=== PATIENT | male | born 1990 | race Caucasian/White ===

== ENCOUNTER 2017-05-24 18:13 | Emergency (ER) | payer SELFPAY ==
[~2017-05-24 18:13] MED LIST: HYDR-3129 PO; INDOMETHACIN 75 MG OR; RIVA10 OR; SENN-29 PO
[2017-05-24] MEDS ORDERED: IOHEXOL 350 MG/ML 10 ML VIAL (for RAD DIAG) IVCONTRAST ONE (18:14)
[2017-05-24 18:26] VITALS: BP 120/65; PULSE 83; RESP 18; TEMP 98; O2SAT 99
--- NOTE | 2017-05-24 18:41 | PD ---
HPI Chief Complaint: Chest Pain Time Seen by Provider: 18:31 Travel History International Travel<30 days: No Contact w/Intl Traveler<30days: No Traveled to known affect area: No History of Present Illness HPI 26-year-old male complains chest pain. Patient states that the chest pain started a week ago. Patient states that the chest pain is pressure pain localized to the lower anterior chest wall area. Patient denies any pain radiation. Patient denies palpitation nausea diaphoresis. Patient states that he has shortness of breath with chest pain. Patient denies any coughing congestion fever chills. Patient denies history of CAD. Patient denies history hypertension, diabetes, hyperlipidemia. Patient is a non-smoker. Patient denies family history of heart disease. Patient states the pain is worse with sitting up and better when lying down. On a scale of 1-10 the pain is a 7. Patient denies any alcohol or illicit drug abuse. PFSH Past Medical History Medical History: Denies Significant Hx Autoimmune Disease: No Cancer: No Cardiovascular Problems: Yes (HEART MURMUR) Endocrine: No Genitourinary: No Immune Disorder: No Musculoskeletal: No Neurologic: No Psychiatric: No Reproductive: No Respiratory: No Seizures: No Tetanus Vaccination: < 5 Years Influenza Vaccination: No Past Surgical History Ear Surgery: Yes Other Surgery: Yes (ear) Social History Alcohol Use: No Tobacco Use: No Substance Use: No Allergies-Medications (Allergen,Severity, Reaction): Coded Allergies: No Known Allergies (Unverified Adverse Reaction, Unknown, 05/24/17) Reported Meds & Prescriptions Reported Meds & Active Scripts Active No Active Prescriptions or Reported Medications Review of Systems General / Constitutional: No: Fever Eyes: No: Visual changes HENT: No: Headaches Cardiovascular: Positive: Chest Pain or Discomfort Respiratory: No: Shortness of Breath Gastrointestinal: No: Abdominal Pain Genitourinary: No: Dysuria Musculoskeletal: No: Pain Skin: No Rash Neurologic: No: Weakness Psychiatric: No: Depression Endocrine: No: Polydipsia Hematologic/Lymphatic: No: Easy Bruising Physical Exam Narrative GENERAL: Well-nourished, well-developed patient. SKIN: Focused skin assessment warm/dry. HEAD: Normocephalic. GENERAL: Well-nourished, well-developed patient. SKIN: Focused skin assessment warm/dry. HEAD: Normocephalic. EYES: No scleral icterus. No injection or drainage. NECK: Supple, trachea midline. No JVD or lymphadenopathy. CARDIOVASCULAR: Regular rate and rhythm without murmurs, gallops, or rubs. RESPIRATORY: Breath sounds equal bilaterally. No accessory muscle use. GASTROINTESTINAL: Abdomen soft, non-tender, nondistended. MUSCULOSKELETAL: No cyanosis, or edema. BACK: Nontender without obvious deformity. No CVA tenderness. Neurologic exam normal. Data Data Last Documented VS Vital Signs Date Time Temp Pulse Resp B/P (MAP) Pulse Ox O2 Delivery O2 Flow Rate FiO2 05/24/17 19:39 63 14 133/64 (87) 100 05/24/17 18:45 Room Air 05/24/17 18:26 98.0 Orders Orders Electrocardiogram (05/24/17 18:35) Complete Blood Count With Diff (05/24/17 18:35) Comprehensive Metabolic Panel (05/24/17 18:35) Creatine Kinase (Cpk) (05/24/17 18:35) Troponin I (05/24/17 18:35) Prothrombin Time / Inr (Pt) (05/24/17 18:35) Act Partial Throm Time (Ptt) (05/24/17 18:35) C-Reactive Protein (Crp) (05/24/17 18:35) Westergren Sedimentation Rate (05/24/17 18:35) Chest, Single Ap (05/24/17 18:35) Iv Access Insert/Monitor (05/24/17 18:35) Ecg Monitoring (05/24/17 18:35) Oximetry (05/24/17 18:35) Sodium Chlor 0.9% 1000 Ml Inj (Ns 1000 M (05/24/17 18:45) Morphine Inj (Morphine Inj) (05/24/17 18:45) Ondansetron Inj (Zofran Inj) (05/24/17 18:45) Ct Pulmonary Angiogram (05/24/17 19:14) Iohexol 350 Inj (Omnipaque 350 Inj) (05/24/17 18:14) Labs Laboratory Tests Test 05/24/17 18:40 White Blood Count 9.7 TH/MM3 Red Blood Count 4.89 MIL/MM3 Hemoglobin 15.8 GM/DL Hematocrit 44.8 % Mean Corpuscular Volume 91.6 FL Mean Corpuscular Hemoglobin 32.4 PG Mean Corpuscular Hemoglobin Concent 35.4 % Red Cell Distribution Width 12.7 % Platelet Count 257 TH/MM3 Mean Platelet Volume 7.8 FL Neutrophils (%) (Auto) 64.1 % Lymphocytes (%) (Auto) 13.8 % Monocytes (%) (Auto) 18.1 % Eosinophils (%) (Auto) 0.9 % Basophils (%) (Auto) 3.1 % Neutrophils # (Auto) 6.3 TH/MM3 Lymphocytes # (Auto) 1.3 TH/MM3 Monocytes # (Auto) 1.7 TH/MM3 Eosinophils # (Auto) 0.1 TH/MM3 Basophils # (Auto) 0.3 TH/MM3 CBC Comment DIFF FINAL Differential Comment Erythrocyte Sedimentation Rate 17 mm/hr Prothrombin Time 10.6 SEC Prothromb Time International Ratio 1.0 RATIO Activated Partial Thromboplast Time 30.6 SEC Blood Urea Nitrogen 13 MG/DL Creatinine 0.93 MG/DL Random Glucose 75 MG/DL Total Protein 7.6 GM/DL Albumin 3.9 GM/DL Calcium Level 8.9 MG/DL Alkaline Phosphatase 100 U/L Aspartate Amino Transf (AST/SGOT) 21 U/L Alanine Aminotransferase (ALT/SGPT) 36 U/L Total Bilirubin 0.8 MG/DL Sodium Level 137 MEQ/L Potassium Level 3.6 MEQ/L Chloride Level 105 MEQ/L Carbon Dioxide Level 23.7 MEQ/L Anion Gap 8 MEQ/L Estimat Glomerular Filtration Rate 97 ML/MIN Total Creatine Kinase 127 U/L Troponin I LESS THAN 0.02 NG/ML MDM Medical Decision Making Medical Screen Exam Complete: Yes Emergency Medical Condition: Yes Interpretation(s) Last Impressions Chest X-Ray 05/24/17 9596 Signed Impressions: Service Date/Time: Wednesday, May 24, 2017 18:43 - CONCLUSION: No evidence of acute cardiopulmonary disease. Davis Awan MD 1927 PM. EKG shows sinus rhythm nonspecific ST-T wave change. CBC within normal limits. CMP within normal limits. Cardiac enzymes are normal. 28:13 PM. Sed rate 17. CT pulmonary angiogram negative acute pathology. Differential Diagnosis Differential diagnosis including musculoskeletal, pericarditis, myocarditis, angina, OH, PE, pneumothorax. Narrative Course 26-year-old male with chest pain. Morphine 2 mg IV. Zofran 4 mg IV. Toradol 30 mg IV given. Diagnosis Primary Impression: Atypical chest pain Patient Instructions: General Instructions Additional Instructions: Take medication as needed for pain. Follow-up with personal physician. Return if increasing chest pain shortness of breath. Med/Other Pt SpecificInfo: Prescription(s) given Scripts Tramadol (Ultram) 50 Mg Tab 50 MG PO Q6H Y for PAIN, #20 TAB 0 Refills Prov: Joseph Oliva MD 05/24/17 Methocarbamol (Robaxin) 750 Mg Tab 750 MG PO QID for Muscle Spasm, #60 TAB 0 Refills Prov: Joseph Oliva MD 05/24/17 Meloxicam (Mobic) 15 Mg Tab 15 MG PO DAILY for Pain, #20 TAB 0 Refills Prov: Joseph Oliva MD 05/24/17 Disposition: 01 DISCHARGE HOME Condition: Stable Joseph Oliva MD May 24, 2017 18:41
[2017-05-24 18:45] VITALS: RESP 18; O2SAT 100
[2017-05-24] MEDS ORDERED: MORPHINE SULFATE 2 MG/ML INJ IV PUSH ONE (18:45)
[2017-05-24] MEDS ORDERED: SODIUM CHLOR 0.9% 1000 ML INJ 1,000 ML IV SCH (18:45)
[2017-05-24] MEDS ORDERED: ONDANSETRON HCL 4 MG/2 ML VIAL IV PUSH ONE (18:45)
[2017-05-24 18:51] LABS: AUTOMATED NEUTROPHIL # 6.3 TH/MM3 (1.8-7.7); BASOPHIL # 0.3 TH/MM3 (0-0.2); BASOPHIL % 3.1 % (0.0-2.0); EOSINOPHIL # 0.1 TH/MM3 (0-0.4); EOSINOPHIL % 0.9 % (0.0-4.0); HEMATOCRIT 44.8 % (39.0-51.0); HEMOGLOBIN 15.8 GM/DL (13.0-17.0); LYMPH % 13.8 % (9.0-44.0); LYMPHOCYTE # 1.3 TH/MM3 (1.0-4.8); MEAN CELL VOLUME 91.6 FL (80.0-100.0); MEAN CORPUSCULAR HEMOGLOBIN 32.4 PG (27.0-34.0); MEAN CORPUSCULAR HGB CONC 35.4 % (32.0-36.0); MEAN PLATELET VOLUME 7.8 FL (7.0-11.0); MONO % 18.1 % (0.0-8.0); MONOCYTE # 1.7 TH/MM3 (0-0.9); NEUT % 64.1 % (16.0-70.0); PLATELET COUNT 257 TH/MM3 (150-450); RED BLOOD COUNT 4.89 MIL/MM3 (4.50-5.90); RED CELL DISTRIBUTION WIDTH 12.7 % (11.6-17.2); WHITE BLOOD COUNT 9.7 TH/MM3 (4.0-11.0)
[2017-05-24 18:58] LABS: CHLORIDE 105 MEQ/L (98-107); SODIUM (NA) 137 MEQ/L (136-145)
--- NOTE | 2017-05-24 18:59 | RADRPT ---
EXAM DATE/TIME: 05/24/2017 18:43 [facility] COMPARISON: No previous studies available for comparison. INDICATIONS : Chest pain. MEDICAL HISTORY : None. SURGICAL HISTORY : None. ENCOUNTER: Initial ACUITY: 1 day PAIN SCORE: 7/10 LOCATION: Left chest FINDINGS: A single view of the chest demonstrates the lungs to be symmetrically aerated without evidence of mas s, infiltrate or effusion. The cardiomediastinal contours are unremarkable. Osseous structures are intact. CONCLUSION: No evidence of acute cardiopulmonary disease. Davis Awan MD on May 24, 2017 at 18:56 Board Certified Radiologist. This report was verified electronically.
[2017-05-24 19:02] LABS: CALCIUM 8.9 MG/DL (8.5-10.1)
[2017-05-24 19:03] LABS: ALBUMIN 3.9 GM/DL (3.4-5.0); BICARBONATE 23.7 MEQ/L (21.0-32.0); BLOOD UREA NITROGEN 13 MG/DL (7-18); GLUCOSE,RANDOM 75 MG/DL (74-106)
[2017-05-24 19:05] LABS: ALT (GPT) 36 U/L (12-78)
[2017-05-24 19:06] LABS: AST (GOT) 21 U/L (15-37); CREATININE 0.93 MG/DL (0.60-1.30); GLOMERULAR FILTRATION RATE 97 ML/MIN (>89)
[2017-05-24 19:07] LABS: TOTAL BILIRUBIN ADULT 0.8 MG/DL (0.2-1.0); TOTAL PROTEIN 7.6 GM/DL (6.4-8.2)
[2017-05-24 19:09] LABS: ALKALINE PHOSPHATASE 100 U/L (45-117)
[2017-05-24 19:11] LABS: TROPONIN I LESS THAN 0.02 NG/ML (0.02-0.05)
[2017-05-24 19:39] VITALS: BP 133/64; PULSE 63; RESP 14; O2SAT 100
[2017-05-24 19:49] LABS: PROTHROMBIN TIME - PATIENT 10.6 SEC (9.8-11.6)
--- NOTE | 2017-05-24 20:09 | RADRPT ---
EXAM DATE/TIME: 05/24/2017 19:48 [facility] COMPARISON: CHEST SINGLE AP, May 24, 2017, 18:43. INDICATIONS : Chest pain. IV CONTRAST: 75 cc Omnipaque 350 (iohexol) IV RADIATION DOSE: 19.77 CTDIvol (mGy) MEDICAL HISTORY : Heart murmur SURGICAL HISTORY : Left total hip ENCOUNTER: Initial ACUITY: 2 weeks PAIN SCALE: 10/10 LOCATION: chest TECHNIQUE: Volumetric scanning of the chest was performed using a pulmonary embolism protocol MIP images were re constructed. Using automated exposure control and adjustment of the mA and/or kV according to patien t size, radiation dose was kept as low as reasonably achievable to obtain optimal diagnostic quality images. DICOM format image data is available electronically for review and comparison. Follow-up recommendations for detected pulmonary nodules are based at a minimum on nodule size and pa tient risk factors according to Fleischner Society Guidelines. FINDINGS: PULMONARY ARTERIES: No filling defects are seen in the pulmonary arteries through the segmental level. LUNGS: There is no consolidation or pneumothorax . No concerning pulmonary nodule is visualized. PLEURAE: There is no pleural thickening or pleural effusion. MEDIASTINUM: There is good visualization of the great vessels of the middle mediastinum. No evidence of mediastin al or hilar adenopathy/mass. MUSCULOSKELETAL: Within normal limits for patient age. MISCELLANEOUS: The visualized upper abdominal organs demonstrate no acute abnormality. CONCLUSION: No pulmonary embolus or other acute abnormality. Davis Awan MD on May 24, 2017 at 20:06 Board Certified Radiologist. This report was verified electronically.
[2017-05-24] MEDS ORDERED: TRAM50 PO (20:22)
[2017-05-24] MEDS ORDERED: MOBI15TA PO (20:22)
[2017-05-24] MEDS ORDERED: ROBA750T PO (20:22)
[2017-05-24] MEDS ORDERED: KETOROLAC TROMETHAMINE 30 MG/ML (IVP) VIAL IV PUSH ONE (20:30)
[2017-05-24 20:36] VITALS: BP 110/62; TEMP 98.4
--- NOTE | 2017-05-25 20:04 | EKG ---
Date Performed: 05/24/2017 Time Performed: 18:44:00 PTAGE: 26 years EKG: Sinus rhythm WITH SINUS ARRHYTHMIA NORMAL ECG NO PREVIOUS TRACING DOCTOR: Josie Jones Interpretating Date/Time 05/25/2017 20:04:05
== END 2017-05-24 20:48 | disposition home or self-care (01) ==
LOC: PHED 18:13
DX: R07.89 Other chest pain (principal)
CPT/HCPCS: 71045; 71275; 80053; 82550; 84484; 85025; 85610; 85652; 85730; 86140; 93005; 96361; 96374; 96375; 99285; J1885; J2270; J2405; J7030; Q9967